=== PATIENT | female | born 1960 ===

== ENCOUNTER 2022-09-19 09:03 | Emergency (ER) | payer OTHER ==
[~2022-09-19] VITALS: Ht 152.4 cm; Wt 71.2 kg
[2022-09-19] MEDS ORDERED: PROGRAF1 MG (09:27)
[2022-09-19] MEDS ORDERED: FAMOTIDINE40 MG (09:28)
[2022-09-19] MEDS ORDERED: SYNTHROID125 MCG (09:28)
[2022-09-19] MEDS ORDERED: AMOXICILLIN500 M1 (09:28)
[2022-09-19] MEDS ORDERED: RAYOS5 MG (09:29)
[2022-09-19] MEDS ORDERED: SULFAMETHOXAZO1 EACH (09:29)
[2022-09-19] MEDS ORDERED: SYNTHROID88 MCG (09:29)
[2022-09-19] MEDS ORDERED: VOLTAREN ARTHRI20 GM TOP (10:00)
== END 2022-09-19 10:04 | disposition home or self-care (01) ==
LOC: ER 09:03
DX: M79.672 Pain in left foot (principal); Z87.448 Personal history of other diseases of urinary system; Z98.85 Transplanted organ removal status; Z88.8 Allergy status to other drugs, medicaments and biological substances

== ENCOUNTER 2023-10-14 18:37 | Emergency (ER) | payer OTHER ==
[~2023-10-14] VITALS: Ht 157.5 cm; Wt 77.1 kg
[~2023-10-14 18:37] MED LIST: AMOXICILLIN500 M1; FAMOTIDINE40 MG; PROGRAF1 MG; RAYOS5 MG; SULFAMETHOXAZO1 EACH; SYNTHROID125 MCG; SYNTHROID88 MCG; VOLTAREN ARTHRI20 GM TOP
[2023-10-14] MEDS ORDERED: PEPCID AC10 MG PO (20:02)
[2023-10-14] MEDS ORDERED: SYNTHROID125 MCG PO (20:02)
[2023-10-14] MEDS ORDERED: SYNTHROID88 MCG PO (20:02)
[2023-10-14] MEDS ORDERED: BACTRIM 400-801 EACH PO (20:03)
[2023-10-14] MEDS ORDERED: TACROLIMUS30 GM TP (20:03)
[2023-10-14] MEDS ORDERED: RAYOS5 MG PO (20:03)
[2023-10-14] MEDS ORDERED: DEXAMETHASONE SODIUM PHOSPHATE 4 MG/ML VIAL IM STA (21:15)
[2023-10-14] MEDS ORDERED: DEXAMETHASONE SODIUM PHOSPHATE 4 MG/ML VIAL ONE (21:18)
== END 2023-10-15 00:23 | disposition home or self-care (01) ==
LOC: ER 18:37
DX: M79.671 Pain in right foot (principal); Z88.8 Allergy status to other drugs, medicaments and biological substances; M77.31 Calcaneal spur, right foot
CPT/HCPCS: 73630; 96372; 99283; J1100